=== PATIENT | female | born 1970 | race Two or more races ===

== ENCOUNTER 2017-03-28 06:16 | Inpatient (IN) | payer MEDICAID ==
[~2017-03-28] VITALS: Ht 149.9 cm; Wt 74.2 kg
[~2017-03-28 06:16] MED LIST: DM H; DM/P295L11
[2017-03-28] MEDS ORDERED: ONDANSETRON 2MG/ML, 2ML ONE (06:56)
[2017-03-28] MEDS ORDERED: MORPHINE SULFATE 4 MG/ML, 1ML ONE (06:56)
[2017-03-28] MEDS ORDERED: FAMOTIDINE 20 MG/2 ML ONE (06:57)
[2017-03-28] MEDS ORDERED: FAMOTIDINE 20 MG/2 ML IVP ONE (07:00)
[2017-03-28] MEDS ORDERED: ONDANSETRON 2MG/ML, 2ML IVPush ONE (07:00)
[2017-03-28] MEDS ORDERED: MORPHINE SULFATE 4 MG/ML, 1ML IVPush PRN (07:00)
[2017-03-28] MEDS ORDERED: SODIUM CHLORIDE FLUSH 10ML SYR IVF ONE (07:00)
[2017-03-28] MEDS ORDERED: SODIUM CHLORIDE 0.9% 1,000ML IVBOLUS ONE (07:00)
[2017-03-28 07:23] LABS: PATH.CAST-FLAG NOT PRESENT; SPERM-FLAG NOT PRESENT; SRC-FLAG NOT PRESENT; XTAL-FLAG NOT PRESENT; YLC-FLAG NOT PRESENT
[2017-03-28 07:46] LABS: HEMATOCRIT 36.9 % (34.6-47.8); HEMOGLOBIN 12.2 g/dL (11.7-16.4); WHITE BLOOD COUNT 8.6 x10^3/uL (3.4-10)
[2017-03-28 08:01] LABS: ASPARTATE AMINO TRANSFERASE 10 U/L (15-37); BLOOD UREA NITROGEN 10 mg/dL (7-18)
[2017-03-28] MEDS ORDERED: HYDROmorphone 1 MG/ML, 1ML ONE (10:27)
[2017-03-28] MEDS ORDERED: HYDROmorphone 2 MG/ML, 1ML IVPush PRN (10:30)
[2017-03-28 11:26] VITALS: BP 100/69
[2017-03-28] MEDS ORDERED: ONDANSETRON 2MG/ML, 2ML IVPush PRN (12:00)
[2017-03-28] MEDS ORDERED: hydrALAzine 20 MG/ML, 1ML IVPush PRN (12:00)
[2017-03-28] MEDS ORDERED: morphine SULFATE 10 MG/ML, 1ML IVPush PRN (12:00)
[2017-03-28 13:29] VITALS: BP 100/69
[2017-03-28] MEDS: METRONIDAZOLE PMX 500MG/100ML 100 ML IV SCH ×2 (14:47→20:50)
[2017-03-28] MEDS: CEFTRIAXONE PMX 1GM/50ML 50 ML IV SCH (14:47)
[2017-03-28] MEDS: SODIUM CHLORIDE 0.9% 1,000 ML IV SCH (14:47)
[2017-03-28] MEDS: PANTOPRAZOLE 40 MG IV IVPush SCH ×2 (14:47→20:50)
[2017-03-28 19:08] VITALS: BP 103/69
[2017-03-29 02:19] VITALS: BP 94/64
[2017-03-29] MEDS: METRONIDAZOLE PMX 500MG/100ML 100 ML IV SCH ×2 (04:31→12:23)
[2017-03-29 05:44] LABS: HEMOGLOBIN 11.5 g/dL (11.7-16.4); WHITE BLOOD COUNT 7.1 x10^3/uL (3.4-10)
[2017-03-29 06:07] LABS: ASPARTATE AMINO TRANSFERASE 15 U/L (15-37); BLOOD UREA NITROGEN 5 mg/dL (7-18)
[2017-03-29 07:24] VITALS: BP 101/67
[2017-03-29] MEDS: SODIUM CHLORIDE 0.9% 1,000 ML IV SCH (07:59)
[2017-03-29] MEDS: PANTOPRAZOLE 40 MG IV IVPush SCH (07:59)
[2017-03-29] MEDS ORDERED: KETOROLAC 30 MG/1 ML IM PRN (08:30)
[2017-03-29 13:50] VITALS: BP 99/69
[2017-03-29] MEDS: CEFTRIAXONE PMX 1GM/50ML 50 ML IV SCH (15:34)
[2017-03-29] MEDS ORDERED: TRAM50TA2 PO (17:10)
[2017-03-29] MEDS ORDERED: ONDA4TAB7 PO (17:10)
[2017-03-29] MEDS ORDERED: OMEP-110 PO (17:14)
== END 2017-03-29 18:38 | disposition home or self-care (01) | DRG 392 ==
LOC: ED 10:28 → EDIP 10:29 → ED 10:45 → 3NE 11:06
PROVIDERS: ADMIT Internal Medicine; ATTEND Internal Medicine
DX: K52.9 Noninfective gastroenteritis and colitis, unspecified (principal); K92.1 Melena; K76.0 Fatty (change of) liver, not elsewhere classified; E66.9 Obesity, unspecified; G89.29 Other chronic pain; Z68.33 Body mass index [BMI] 33.0-33.9, adult; Z88.1 Allergy status to other antibiotic agents; Z88.8 Allergy status to other drugs, medicaments and biological substances
CPT/HCPCS: 36415; 74176; 76700; 78227; 80053; 81001; 83690; 83735; 84100; 84703; 85025; 86677; 87040; 87086; 96361; 96374; 96375; J0696; J1170; J2405; A9537; C9113; C9898; J7030; S0028

== ENCOUNTER 2017-04-24 07:59 | Emergency (ER) | payer MEDICAID ==
[~2017-04-24] VITALS: Ht 149.9 cm; Wt 71.4 kg
[~2017-04-24 07:59] MED LIST changes: +OMEP-110 PO; +ONDA4TAB7 PO; +TRAM50TA2 PO
[2017-04-24] MEDS ORDERED: HYDROcodone/APAP 5/325 TABLET PO ONE (08:30)
[2017-04-24] MEDS ORDERED: HYDROcodone/APAP 5/325 TABLET ONE (09:08)
[2017-04-24 09:11] VITALS: BP 132/72
== END 2017-04-24 09:16 | disposition home or self-care (01) ==
LOC: ED 08:41
DX: K08.89 Other specified disorders of teeth and supporting structures (principal); R68.84 Jaw pain; Z88.1 Allergy status to other antibiotic agents; Y04.0XXA Assault by unarmed brawl or fight, initial encounter
CPT/HCPCS: 70486; 99284

== ENCOUNTER 2017-09-26 16:58 | Emergency (ER) | payer MEDICAID ==
[~2017-09-26] VITALS: Ht 149.9 cm; Wt 68.1 kg
[2017-09-26] MEDS ORDERED: KETOROLAC 30 MG/1 ML ONE (18:26)
[2017-09-26] MEDS ORDERED: SODIUM CHLORIDE FLUSH 10ML SYR IVF ONE (18:30)
[2017-09-26] MEDS ORDERED: LORazepam 2 MG/ML, 1ML IVPush ONE (18:30)
[2017-09-26] MEDS ORDERED: ASPIRIN 81 MG TABLET CHEW PO ONE (18:30)
[2017-09-26] MEDS ORDERED: KETOROLAC 30 MG/1 ML IM ONE (18:30)
[2017-09-26 18:39] LABS: BASOPHILS # (AUTO) 0.05 x10^3/uL (0-0.1); BASOPHILS % (AUTO) 1 % (0-1); EOSINOPHILS # (AUTO) 0.24 x10^3/uL (0-0.4); EOSINOPHILS % (AUTO) 3 % (1-7); LYMPHOCYTES # (AUTO) 2.61 x10^3/uL (1-3.4); LYMPHOCYTES % (AUTO) 29 % (22-44); MD NO; MEAN CORPUSCULAR HEMOGLOBIN 26.4 pg (27.0-34.8); MEAN CORPUSCULAR HGB CONC 32.9 g/dL (32.4-35.8); MEAN CORPUSCULAR VOLUME 80.3 fL (80-100); MEAN PLATELET VOLUME 8.3 fL (7.4-10.4); MONOCYTES # (AUTO) 0.77 x10^3/uL (0.2-0.8); MONOCYTES % (AUTO) 8 % (2-9); NEUTROPHILS # (AUTO) 5.44 x10^3/uL (1.8-6.8); NEUTROPHILS % (AUTO) 60 % (42-75); PLATELET COUNT 270 x10^3/uL (130-400); RED BLOOD COUNT 4.85 x10^6/uL (3.82-5.3); RED CELL DISTRIBUTION WIDTH 18.2 % (9.6-15.2)
[2017-09-26 18:50] LABS: ALBUMIN 3.8 g/dL (3.4-5.0); ANION GAP 10 mmol/L (5-15); CHLORIDE 108 mmol/L (98-107); CREATININE 0.57 mg/dL (0.55-1.02)
[2017-09-26 18:55] LABS: TROPONIN I < 0.015 ng/mL (0.000-0.045)
[2017-09-26 19:04] VITALS: BP 102/77
== END 2017-09-26 19:43 | disposition home or self-care (01) ==
LOC: ED 18:56
DX: R07.2 Precordial pain (principal); R05 Cough; R50.9 Fever, unspecified; Z88.1 Allergy status to other antibiotic agents
CPT/HCPCS: 36415; 71045; 80048; 82040; 83880; 84484; 85025; 93005; 96372; 99285; J1885

== ENCOUNTER 2017-09-30 20:47 | Emergency (ER) | payer MEDICAID ==
[~2017-09-30] VITALS: Ht 149.9 cm; Wt 66.6 kg
[2017-09-30 20:51] VITALS: BP 105/67
== END 2017-09-30 22:32 | disposition home or self-care (01) ==
LOC: ED 22:26
DX: H66.003 Acute suppurative otitis media without spontaneous rupture of ear drum, bilateral (principal); B34.9 Viral infection, unspecified
CPT/HCPCS: 99283

== ENCOUNTER 2018-08-29 06:39 | Emergency (ER) | payer SELFPAY ==
[~2018-08-29] VITALS: Ht 149.9 cm; Wt 68.6 kg
[2018-08-29 06:40] VITALS: BP 125/84
--- NOTE | 2018-08-29 07:32 | NUR ---
ASSUMED CARE OF PATIENT. PT C/O SORE, ITCY THROAT AND DRY COUGH AND SINUS PAIN. PT IN NO DISTRESS. FAMILY MEMBER AT BEDSIDE.
--- NOTE | 2018-08-29 07:44 | NUR ---
PATIENT BACK FROM XRAY.
--- NOTE | 2018-08-29 08:42 | NUR ---
Patient/Caregiver given discharge instructions and they have confirmed that they understand the instructions. Patient ambulatory with steady gait.
== END 2018-08-29 08:43 | disposition home or self-care (01) ==
LOC: ED 08:19
DX: J01.20 Acute ethmoidal sinusitis, unspecified (principal); J01.10 Acute frontal sinusitis, unspecified; B97.89 Other viral agents as the cause of diseases classified elsewhere; Z88.1 Allergy status to other antibiotic agents; Z88.8 Allergy status to other drugs, medicaments and biological substances
CPT/HCPCS: 71046; 99283